=== PATIENT | male | born 1980 | race Caucasian/White ===

== ENCOUNTER 2020-12-19 17:35 | Outpatient (CLI) | payer OTHER, SELFPAY | END 2020-12-19 17:36 | disposition home or self-care (01) | LOC: ANHCOVIDVC 17:35 | PROVIDERS: PCP Podiatrist Foot & Ankle Surgery | DX: Z23 Encounter for immunization (principal) | CPT/HCPCS: 0001A; 91300 ==

== ENCOUNTER 2021-01-09 17:47 | Outpatient (CLI) | payer OTHER, SELFPAY | END 2021-01-09 17:48 | disposition home or self-care (01) | LOC: ANHCOVIDVC 17:47 | PROVIDERS: PCP Podiatrist Foot & Ankle Surgery | DX: Z23 Encounter for immunization (principal) | CPT/HCPCS: 0002A; 91300 ==